=== PATIENT | male | born 1955 | race Hispanic/Latino ===

== ENCOUNTER 2017-09-10 06:23 | Day surgery (SDC) | payer BC ==
[2017-08-29 12:41] VITALS: BMI 27.5
[2017-09-10] MEDS ORDERED: Propofol 10 mg/ml Inj (20 ML) ONE (07:43)
[2017-09-10] MEDS ORDERED: Midazolam 2 MG/2 ML VIAL ONE (07:44)
[2017-09-10] MEDS ORDERED: Rocuronium 10 mg/ml (5 ml) ONE (07:45)
[2017-09-10] MEDS ORDERED: Morphine 4 mg/ml ISec IVP PRN (07:51)
[2017-09-10] MEDS ORDERED: Iohexol 240 (50 ml) ONE (07:52)
[2017-09-10] MEDS ORDERED: Bupivacaine 0.5% Inj(30mL) ONE (07:52)
[2017-09-10] MEDS ORDERED: Lactated Ringer's 1,000 ML IV SCH ×2 (08:00→10:15)
[2017-09-10] MEDS ORDERED: Liquid Adhesive TOP ONE (09:01)
[2017-09-10] MEDS ORDERED: Neostigmine Methylsulfate 3mg/3ml Syringe IV ONE (09:25)
[2017-09-10] MEDS ORDERED: Glycopyrrolate 0.2 mg/ml (2ml vial) ONE (09:25)
[2017-09-10] MEDS: HYDROmorphone 0.5 mg/0.5 ml ISec IVP PRN ×2 (09:59→10:18)
--- NOTE | 2017-09-10 09:59 | PCM.SURG1 ---
Surgeon's Initial Post Op Note - Surgeon's Notes Surgeon: Dr. Potter Sorter Pricer: Dr. Gage PGY-4, Dr. Harris PGY-1 Type of Anesthesia: General Endo, Local Anesthesia Administered By: Dr. Watson Pre-Operative Diagnosis: Symptomatic cholelithiasis Operative Findings: Symptomatic cholelithiasis, chronic cholecystitis. IOC: contrast went into hepatic ducts, CBD, duodenum without any filling defects Post-Operative Diagnosis: Symptomatic cholelithiasis, chronic cholecystitis Operation Performed: Laparoscopic cholecystectomy with intraoperative cholangiogram Specimen/Specimens Removed: gallbladder Estimated Blood Loss: EBL {In ML}: 10 Blood Products Given: N/A Drains Used: No Drains Post-Op Condition: Good Date of Surgery/Procedure: 09/10/17 Time of Surgery/Procedure: 09:58
[2017-09-10] MEDS ORDERED: HYDROmorphone 0.5 mg/0.5 ml ISec ONE ×3 (10:00→10:36)
[2017-09-10] MEDS ORDERED: HYDROmorphone 0.5 mg/0.5 ml ISec IVP ONE (10:35)
--- NOTE | 2017-09-10 10:35 | RAD ---
PROCEDURE: Fluoroscopy up to 1 hr. HISTORY: R/O OBSTRUCTION COMPARISON: None TECHNIQUE: Standard protocol for this study/examination. FINDINGS: Total fluoroscopic time (continuous mode) utilized during the procedure (seconds) 18.4. Total exam DLP: (mGy) 5.10. IMPRESSION: Less than 1 hr fluoroscopic time utilized during performance of the procedure.
[2017-09-10 10:37] VITALS: O2SAT 97
[2017-09-10] MEDS ORDERED: Oxycodone/Acetaminophen 5/325 mg Tab PO PRN (11:00)
[2017-09-10 11:46] VITALS: BP 135/89; PULSE 75; RESP 18; TEMP 97.5
--- NOTE | 2017-09-10 23:12 | OP ---
PROCEDURE DATE: 09/10/2017 PREOPERATIVE DIAGNOSES: Chronic cholecystitis, cholelithiasis. POSTOPERATIVE DIAGNOSES: Chronic cholecystitis, cholelithiasis. PROCEDURE PERFORMED: Laparoscopic cholecystectomy with intraoperative cholangiogram. SURGEON: Bravo Potter MD [facility] RN: Dr. Gage and Dr. Harris. ANESTHESIA ADMINISTERED BY: Dr. Watson. TYPE OF ANESTHESIA: General endotracheal anesthesia. ESTIMATED BLOOD LOSS: Minimal. SPECIMEN: Gallbladder and gallstone. INDICATION: Patient is a 62-year-old male with recurrent right upper quadrant abdominal pain and visits to the hospital for acute episode of cholecystitis. Patient came in to the office for consultation, was noted to have symptomatic gallstone and was scheduled for laparoscopic cholecystectomy. DESCRIPTION OF PROCEDURE: Patient was brought to the operating room and placed on the operating table in supine position. Patient was connected to the EKG, blood pressure and pulses were monitored. Patient then underwent general endotracheal anesthesia and was prepped and draped in the usual sterile fashion. First standard time-out procedure took place for everybody in the room, agreed as to this patient's identity, diagnoses, and procedure to be performed. Operative as well as postoperative course was discussed with the OR team. Using 2 towel clips, the anterior abdominal wall was elevated and Veress needle was inserted through the small incision superior to the umbilicus. The pneumoperitoneum was obtained and 12-mm trocar was inserted through that incision into the abdominal cavity. Careful evaluation of the abdominal cavity revealed the presence of adhesions of the omentum to the inferior wall of the gallbladder. They appeared also to be very fatty layer covering the area of infundibulum. We then placed the second 5-mm trocar in the subxiphoid position. Now using both grasper and dissector carefully, the adhesions of the omentum to the gallbladder were carefully taken down and the infundibulum was exposed. The further dissection took place using electrocautery and Harmonic instrument, in order to the clear the fat off the area of the infundibulum and junction with the cystic duct. The cystic duct was now exposed and carefully dissected out and freed up from the surrounding tissues. The cystic artery which was directly behind it was also freed up and cleared from the surrounding fat. Once both the structures were clearly identified, then procedure placed and clipped in proximal cystic duct. Made a small incision on the side of it and placed a cholangiocatheter into the cystic duct. Now under direct visualization with fluoroscopy, cholangiogram was obtained revealing prompt flow of dye into the entire biliary tree with no filling defect and from emptying into the duodenum. There was no evidence of obstruction or presence of the stones. Now the cystic duct catheter was removed and the cystic duct was clipped distally and transected. The cystic artery was also clipped and transected. Using Harmonic scalpel, we then proceeded with careful detachment of the gallbladder off its liver wall and once completely detached, it was placed in the EndoCatch bag and removed through the periumbilical incision. Now the right upper quadrant was copiously irrigated. All the irrigant fluid was suctioned out. There was excellent hemostasis noted throughout the right upper quadrant. Careful evaluation on the port site also revealed no evidence of bleeding. The gallbladder which was completely detached from the liver, now placed in the EndoCatch bag and removed through the periumbilical incision, it appeared to contain a single stone. Now the pneumoperitoneum was released, trocars were removed, then the wounds were closed using 0 Vicryl for the fascia, 3-0 Vicryl for subcutaneous tissue and 4-0 Monocryl for skin. The sterile Dermabond dressing was applied to the wound. Patient tolerated the procedure well and there were no complications. Patient was awakened and transferred to the recovery room for further observation. Bravo Potter MD
== END 2017-09-10 12:50 | disposition home or self-care (01) ==
LOC: SDS 06:23
PROVIDERS: ATTEND General Practice
DX: K80.10 Calculus of gallbladder with chronic cholecystitis without obstruction (principal); I73.9 Peripheral vascular disease, unspecified
CPT/HCPCS: 47563; 74300; 88304; J0690; J1170; J2001; J2250; J2270; J2405; J2704; J2710; J3010; J7120 ×2